=== PATIENT | female | born 1945 | race Caucasian/White ===

== ENCOUNTER 2021-02-06 21:39 | Inpatient (IN) ==
[2021-02-07 00:47] LABS: Urine Appearance Clear; Urine Bilirubin Negative (Negative); Urine Blood Negative (Negative); Urine Color Yellow; Urine Glucose Negative (Negative); Urine Ketones Trace (Negative); Urine Nitrite Negative (Negative); Urine Protein Negative (Negative); Urine Urobilinogen Negative (Negative)
[2021-02-07 00:51] LABS: Urine Bacteria 1+ (Absent); Urine Red Blood Cell Trace(0-2/hpf) (Absent); Urine Squamous Epithelial Cell Present (Absent); Urine White Blood Cell Trace(0-5/hpf) (Absent)
[2021-02-07 00:58] LABS: Urine Specific Gravity > 1.060 (1.002-1.030)
[2021-02-07 04:33] LABS: ABS Basophils 0.1 10^3/ul (0-0.2); ABS Eosinophils 0.1 10^3/ul (0-0.6); ABS Lymphocytes 1.1 10^3/ul (1.0-4.8); ABS Monocytes 0.5 10^3/ul (0-0.8); ABS Neutrophils 2.9 10^3/ul (1.5-7.7); Eosinophil % 2.9 %; Hematocrit 39 % (35-47); Hemoglobin 13.7 g/dL (12.0-16.0); Lymphocyte % 23.6 %; Mean Corpuscular HGB Conc 35 g/dL (31-36); Mean Corpuscular Hemoglobin 29 pg (27-31); Mean Corpuscular Volume 82 fL (80-97); Mean Platelet Volume 7.6 fL (7.4-10.4); Nucleated Red Blood Cells % 0.1; Platelet Count 104 10^3/uL (150-450); Red Blood Count 4.78 10^6 /uL (3.70-4.87); Red Cell Distribution Width 16 % (10-15); White Blood Count 4.7 10^3/uL (3.5-10.8)
[2021-02-07 04:55] LABS: Calcium 8.9 mg/dL (8.6-10.3); EGFR African American 84.6 (>60); EGFR Non-African American 69.9 (>60); Potassium 3.6 mmol/L (3.5-5.0)
[2021-02-07 06:03] LABS: HDL Cholesterol 25.9 mg/dL
[2021-02-07] MEDS: Enoxaparin 40 MG/0.4 ML SYR SUBCUT SCH (08:32)
[2021-02-08] MEDS: Enoxaparin 40 MG/0.4 ML SYR SUBCUT SCH (09:34)
[2021-02-09 06:27] LABS: CO2 Carbon Dioxide 25 mmol/L (22-32); Calcium 8.7 mg/dL (8.6-10.3); Chloride 105 mmol/L (101-111); Sodium 137 mmol/L (135-145)
[2021-02-09 06:32] LABS: Anion Gap 7 mmol/L (2-11); Blood Urea Nitrogen 18 mg/dL (6-24); EGFR African American 87.1 (>60); Glucose 102 mg/dL (70-100)
[2021-02-09] MEDS: Enoxaparin 40 MG/0.4 ML SYR SUBCUT SCH (09:29)
[2021-02-09 12:25] VITALS: BP 127/67
== END 2021-02-09 15:45 | DRG 101 ==
LOC: ED 21:39 → MEDTELE 23:31
PROVIDERS: ADMIT Student in an Organized Health Care Education/Training Program; ATTEND Internal Medicine